=== PATIENT | male | born 1970 | race Caucasian/White ===

== ENCOUNTER 2016-06-25 10:37 | Emergency (ER) | payer MEDICARE ==
[~2016-06-25 10:37] MED LIST: AMB10 PO; FLEX PO; LORTAB10 PO; METHOC500B PO; NORCO1 TA1 PO; SEROQUEL50 MG PO
== END 2016-06-25 11:43 | disposition home or self-care (01) ==
LOC: ER 10:37
DX: K02.9 Dental caries, unspecified (principal); F17.200 Nicotine dependence, unspecified, uncomplicated; Z88.8 Allergy status to other drugs, medicaments and biological substances; Z79.899 Other long term (current) drug therapy
CPT/HCPCS: 99282